=== PATIENT | male | born 1995 | race American Indian/Alaskan Native ===

== ENCOUNTER 2018-04-04 00:33 | Inpatient (IN) | payer MEDICAID ==
--- NOTE | 2018-04-04 01:20 | C.PDOC ---
History Of Present Illness Patient brought in by EMS after being found in the street. Patient admits to using pcp tonsandeep. Patient is now cooperative and pleasant. Denies physical complaints at this time. Time Seen by Provider: 04/04/18 01:20 Chief Complaint (Nursing): Substance Abuse History Per: Patient History/Exam Limitations: no limitations Onset/Duration Of Symptoms: Hrs Current Symptoms Are (Timing): Still Present Suicide/Self Injury Attempted (Context): None Modifying Factor(s): Other (pcp) Associated Symptoms: denies: Depression, Suicidal Thoughts Involuntary Hold By: None Recent travel outside of the [place]: No Past Medical History Reviewed: Historical Data, Nursing Documentation, Vital Signs Vital Signs: Last Vital Signs Temp 98.5 F 04/04/18 04:05 Pulse 78 04/04/18 04:05 Resp 18 04/04/18 04:05 BP 128/78 04/04/18 04:05 Pulse Ox 98 04/04/18 04:05 Family History: States: No Known Family Hx - Social History Hx Alcohol Use: Yes Hx Substance Use: Yes Review Of Systems Constitutional: Negative for: Fever, Chills Cardiovascular: Negative for: Chest Pain, Palpitations Respiratory: Negative for: Cough Gastrointestinal: Negative for: Nausea, Vomiting, Abdominal Pain Physical Exam - Physical Exam Appears: Non-toxic Skin: Warm, Dry Head: Normacephalic Oral Mucosa: Moist Chest: Symmetrical, No Tenderness Cardiovascular: Rhythm Regular Respiratory: No Rales, No Rhonchi, No Wheezing Gastrointestinal/Abdominal: Soft, No Tenderness Neurological/Psych: Oriented x3 ED Course And Treatment - Laboratory Results Result Diagrams: 04/04/18 02:01 04/04/18 02:01 O2 Sat by Pulse Oximetry: 99 (Room air) Pulse Ox Interpretation: Normal Progress Note: Blood work and urinalysis ordered. Crisis notified. Disposition Counseled Patient/Family Regarding: Studies Performed, Diagnosis - Disposition Disposition Time: 01:20 Condition: FAIR Forms: [facility] (Romanian) - Clinical Impression Clinical Impression: Bizarre behavior - Scribe Statement The provider has reviewed the documentation as recorded by the Scribe Griffin Cabezas All medical record entries made by the Scribe were at my direction and personally dictated by me. I have reviewed the chart and agree that the record accurately reflects my personal performance of the history, physical exam, medical decision making, and the department course for this patient. I have also personally directed, reviewed, and agree with the discharge instructions and disposition. Physician Patient Turnover Patient Signed Over To: Fredy Lama DO Handoff Comments: pending psychiatrist re-eval
[2018-04-04 01:50] LABS: SQUAMOUS EPITHIAL < 1 /hpf (0-5); URINE BILIRUBIN NEGATIVE (NEGATIVE); URINE BLOOD NEGATIVE (NEGATIVE); URINE CLARITY Clear (Clear); URINE COLOR Colorless (YELLOW); URINE GLUCOSE (UA) NORMAL (Normal); URINE LEUKOCYTE ESTERASE NEG Leu/uL (Negative); URINE PROTEIN NEGATIVE (NEGATIVE); URINE UROBILINOGEN NORMAL mg/dL (0.2-1.0)
[2018-04-04 02:03] LABS: BARBITURATES, UR NEGATIVE (NEGATIVE); BENZODIAZEPINES, UR NEGATIVE (NEGATIVE); OPIATES, UR NEGATIVE (NEGATIVE); PHENCYCLIDINE, UR NEGATIVE (NEGATIVE)
[2018-04-04 02:06] LABS: BASO # 0.1 K/uL (0.0-0.2); BASO % 0.9 % (0.0-2.0); EOS # 0.3 K/uL (0.0-0.7); EOS % 2.4 % (0.0-4.0); HEMOGLOBIN 14.3 g/dL (12.0-18.0); LYMPH # 4.9 K/uL (1.0-4.3); LYMPH % 45.2 % (20.0-40.0); MEAN CELL VOLUME 80.9 fL (80.0-94.0); MEAN CORPUSCULAR HEMOGLOBIN 26.5 pg (27.0-31.0); MEAN CORPUSCULAR HGB CONC 32.7 g/dL (33.0-37.0); MONO # 0.7 K/uL (0.0-0.8); MONO % 6.7 % (0.0-10.0); NEUT # 4.9 K/uL (1.8-7.0); NEUT % 44.8 % (50.0-75.0); NRBC % 0.1 % (0.0-2.0); RBC 5.4 Mil/uL (4.40-5.90); RED CELL DISTRIBUTION WIDTH 15.1 % (11.5-14.5); WHITE BLOOD COUNT 10.9 K/uL (4.8-10.8)
[2018-04-04 02:17] LABS: ALB/GLOB RATIO 1.2 (1.0-2.1); ALBUMIN 4.8 g/dL (3.5-5.0); ALT/SGPT 31 U/L (21-72); AST/SGOT 45 U/L (17-59); BLOOD UREA NITROGEN 11 mg/dL (9-20); CALCIUM 9.4 mg/dl (8.6-10.4); GFR AFRICAN-AMERICAN > 60; GFR NON-AFRICAN AMERICAN > 60
--- NOTE | 2018-04-04 12:04 | RAD ---
HISTORY: r/o infiltrate COMPARISON: No prior. FINDINGS: LUNGS: Limited inspiratory volume. No infiltrates bilaterally. PLEURA: No significant pleural effusion identified, no pneumothorax apparent. CARDIOVASCULAR: Normal. OSSEOUS STRUCTURES: No significant abnormalities. VISUALIZED UPPER ABDOMEN: Normal. OTHER FINDINGS: None. IMPRESSION: Limited inspiratory volume. No acute infiltrate identified bilaterally. No pneumothorax or pleural effusion bilaterally.
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
[2018-04-04] MEDS ORDERED: Divalproex 250 mg DR Tab PO ONE (18:38)
[2018-04-04] MEDS: Divalproex 250 mg DR Tab PO SCH (18:40)
[2018-04-05] MEDS: Divalproex 250 mg DR Tab PO SCH ×2 (10:31→19:50)
[2018-04-05] MEDS ORDERED: Divalproex 250 mg DR Tab PO ONE (19:52)
[2018-04-06] MEDS ORDERED: Divalproex 250 mg DR Tab PO ONE (11:36)
[2018-04-06] MEDS: Divalproex 250 mg DR Tab PO SCH (11:39)
[2018-04-06 11:43] VITALS: O2SAT 98
--- NOTE | 2018-04-06 12:05 | PCM.PYCHPN ---
Psychiatric Progress Note - Psychiatric Progress Note Patient seen today, length of contact: 19 min Patient Chief Complaint: "Tired" Problems Identified/Issues Discussed: The pt is seen, chart reviewed and case discussed He has been in ED for a while and screened and accepted for involuntary bed. He was bizarre and psychotic, and also used PCP. He has an extensive psych history despite young age, including involuntary admissions and mandated outpatient treatment in [facility]. His mo had been contacted ( they don't live together but she is in touch) and she confirmed that he had been decompensating. pt was polite with the chief underwriter and accepted voluntary admission after his rights and treatment plan were discussed. [facility] He is taking meds - doses adjusted Not suicidal/homicidal Slightly paranoid and child-like, but no overt delusions or hallucinations elicited. Though he is also guarded. He said he used Risperdal CONSTA in the past and rejected depot haldol but agreed to increse the dose. Medication Change: Yes (increase haldol) Medical Record Reviewed: Yes Mental Status Examination - Cognitive Function Orientation: Person, Place, Situation, Time Memory: Impaired Attention: Poor Concentration: Poor Association: Loose Fund of Knowledge: Poor - Mood Mood: Anxious - Affect Affect: Blunted - Speech Speech: Appropriate - Formal Thought Process Formal Thought Process: Paranoia, Loosening of associations - Suicidal Ideation Suicidal Ideation: No - Homicidal Ideation Homicidal Ideation: No Goal/Treatment Plan - Goal/Treatment Plan Need for Continued Stay: Discharge may exacerbated symptoms, Severe functional impairment Progress Toward Problem(s) and Goals/Treatment Plan: Admit to 5E Continue meds Attend groups and activities Support and psychoed Contact [facility] Consider [facility] Estimated Date of D/C: 04/11/18
[2018-04-06] MEDS: Divalproex 500 mg DR Tab PO SCH (17:52)
[2018-04-07] MEDS: Divalproex 500 mg DR Tab PO SCH (09:38)
--- NOTE | 2018-04-07 11:38 | PCM.PYCHPN ---
Psychiatric Progress Note - Psychiatric Progress Note Patient seen today, length of contact: 15 min Patient Chief Complaint: "I am sleepy" Problems Identified/Issues Discussed: The pt is seen, chart reviewed, case discussed with staff. Support given, CBT and MA used briefly No new symptoms reported, improving slowly and needs more time No SEs from medications, risks discussed. After care discussed - he is not interested and is evasive but will go back to detention Medication Change: Yes (jack grant) Medical Record Reviewed: Yes Mental Status Examination - Cognitive Function Orientation: Person, Place, Situation, Time Memory: Intact Attention: WNL Concentration: Poor Association: WNL Fund of Knowledge: Poor - Mood Mood: Anxious - Affect Affect: Constricted - Speech Speech: Appropriate - Formal Thought Process Formal Thought Process: Paranoia - Suicidal Ideation Suicidal Ideation: No - Homicidal Ideation Homicidal Ideation: No Goal/Treatment Plan - Goal/Treatment Plan Need for Continued Stay: Discharge may exacerbated symptoms, Severe functional impairment Progress Toward Problem(s) and Goals/Treatment Plan: Continue meds Attend groups and activities Support and psychoed Contact Consider [facility] Estimated Date of D/C: 04/11/18
--- NOTE | 2018-04-07 15:37 | CARD ---
APPROVED REPORT EKG Measurement Heart [id number] <Conclusion> Sinus rhythm with marked sinus arrhythmia Early repolarization Otherwise normal ECG
[2018-04-08 06:36] VITALS: RESP 18; TEMP 98.1
--- NOTE | 2018-04-08 10:00 | PCM.PYCHPN ---
Psychiatric Progress Note - Psychiatric Progress Note Patient seen today, length of contact: 15 min Patient Chief Complaint: I'm doing fine.' Problems Identified/Issues Discussed: Patient seen and evaluated, chart reviewed and discussed with the nurse. Today patient appeared more organized and less internally preoccupied than before. Patient reports some improvement in the thought process. He reports improvement in his depressed mood. He remained isolated and withdrawn but denies any suicidal ideation or homicidal ideation. He is taking medication and denies any side effects. Symptoms are improving but he needs more time for stabilization. Medication Change: Yes (start neurontin) Medical Record Reviewed: Yes Mental Status Examination - Cognitive Function Orientation: Person, Place, Situation, Time Memory: Impaired Attention: WNL Concentration: WNL Association: Loose Fund of Knowledge: WNL - Mood Mood: Anxious - Affect Affect: Blunted - Speech Speech: Appropriate - Formal Thought Process Formal Thought Process: Loosening of associations - Suicidal Ideation Suicidal Ideation: No - Homicidal Ideation Homicidal Ideation: No Goal/Treatment Plan - Goal/Treatment Plan Need for Continued Stay: Discharge may exacerbated symptoms, Severe functional impairment Progress Toward Problem(s) and Goals/Treatment Plan: Brief psychotic disorder R/O schizophrenia paranoid type PCP use disorder moderate CBT Psychoeducation Supportive therapy, group therapy, individual therapy Haldol 10 mg by mouth twice a day Cogentin 1 mg by mouth twice a day Neurontin 300 mg PO TID Benadryl 50 mg by mouth every 6 hours when necessary Haldol 5 mg by mouth every 6 hours when necessary Trazodone 100 mg Estimated Date of D/C: 04/11/18 - Smoking Cessation Smoking Cessation Initiated: No
[2018-04-09] MEDS ORDERED: Pneumococcal 23-Valent Vaccine IM ONE (10:00)
--- NOTE | 2018-04-09 17:24 | PCM.PYCHPN ---
Psychiatric Progress Note - Psychiatric Progress Note Patient seen today, length of contact: 15 min Patient Chief Complaint: I'm doing fine.' Problems Identified/Issues Discussed: Patient seen and evaluated, chart reviewed and discussed with the nurse. Today patient appeared more organized and less internally preoccupied than before. Patient reports some improvement in the thought process. He reports improvement in his depressed mood. He remained isolated and withdrawn but denies any suicidal ideation or homicidal ideation. He is taking medication and denies any side effects. Symptoms are improving but he needs more time for stabilization. Medication Change: Yes (jack grant) Medical Record Reviewed: Yes Mental Status Examination - Cognitive Function Orientation: Person, Place, Situation, Time Memory: Intact Attention: WNL Concentration: Poor Association: WNL Fund of Knowledge: Poor - Mood Mood: Anxious - Affect Affect: Constricted - Speech Speech: Appropriate - Formal Thought Process Formal Thought Process: Paranoia - Suicidal Ideation Suicidal Ideation: No - Homicidal Ideation Homicidal Ideation: No Goal/Treatment Plan - Goal/Treatment Plan Need for Continued Stay: Discharge may exacerbated symptoms, Severe functional impairment Progress Toward Problem(s) and Goals/Treatment Plan: Brief psychotic disorder R/O schizophrenia paranoid type PCP use disorder moderate CBT Psychoeducation Supportive therapy, group therapy, individual therapy Haldol 10 mg by mouth twice a day Cogentin 1 mg by mouth twice a day Neurontin 300 mg PO TID Benadryl 50 mg by mouth every 6 hours when necessary Haldol 5 mg by mouth every 6 hours when necessary Trazodone 100 mg Estimated Date of D/C: 04/11/18
--- NOTE | 2018-04-10 08:23 | PCM.BM ---
Treatment Plan Problems - Problems identified on initial assessmt Schizophrenia Date Initiated: 04/10/18 Time Initiated: 08:22 Assessment reference: NA Status: Active Treatment assets and liabiliti Patient Assests: cooperative, ADL independent, physically healthy, good support system, negotiates basic needs Patient Liabilities: live alone, substance abuse - Milieu Protocol Maintain good personal hygiene: daily Encourage regular showers, daily Remind patient to perform daily oral care, daily Assist patient to perform ADL's Conduct patient checks and document Observation sheet: Q15 minutes Maintain personal safety: every shift Educate patient to report safety concerns to staff, every shift Monitor environment for contraband/sharps Medication safety: Monitor for expected outcome, potential side effects: every shift, Assess barriers to learning: every shift, Assess readiness for medication education: every shift Milieu Narrative: Brief psychotic disorder R/O schizophrenia paranoid type PCP use disorder moderate CBT Psychoeducation Supportive therapy, group therapy, individual therapy Haldol 10 mg by mouth twice a day Cogentin 1 mg by mouth twice a day Neurontin 300 mg PO TID Benadryl 50 mg by mouth every 6 hours when necessary Haldol 5 mg by mouth every 6 hours when necessary Trazodone 100 mg Discharge/Continuing Care - Treatment Team Participation Patient/Family/SO Statement: Brief psychotic disorder R/O schizophrenia paranoid type PCP use disorder moderate CBT Psychoeducation Supportive therapy, group therapy, individual therapy Haldol 10 mg by mouth twice a day Cogentin 1 mg by mouth twice a day Neurontin 300 mg PO TID Benadryl 50 mg by mouth every 6 hours when necessary Haldol 5 mg by mouth every 6 hours when necessary Trazodone 100 mg
[2018-04-10 09:58] VITALS: BP 102/68; PULSE 70
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
== END 2018-04-10 11:10 | disposition home or self-care (01) | DRG 426 ==
LOC: C.ER 00:33 → C.9E 04-06 12:11 → C.5E 04-06 12:24
PROVIDERS: ADMIT Psychiatry & Neurology Psychiatry; ATTEND Psychiatry & Neurology Psychiatry
PROC: GZHZZZZ Group Psychotherapy (ICD-10-PCS; principal; 2018-04-06)
DX: F32.9 Major depressive disorder, single episode, unspecified (principal); F16.10 Hallucinogen abuse, uncomplicated; Z68.36 Body mass index [BMI] 36.0-36.9, adult